=== PATIENT | female | born 1995 | race Caucasian/White ===

== ENCOUNTER 2016-12-17 10:56 | Emergency (ER) | payer BC ==
[~2016-12-17] VITALS: Ht 157.5 cm; Wt 50.0 kg
[~2016-12-17 10:56] MED LIST: IBUP-232 PO; Z.0.BCPILL PO
[2016-12-17 11:05] VITALS: BP 93/52; PULSE 95; RESP 20; TEMP 97.5; O2SAT 96
[2016-12-17] MEDS ORDERED: [UNRECOGNIZED DRUG - OTHER] (11:13)
[2016-12-17] MEDS ORDERED: NATATAB2 PO (11:13)
[2016-12-17] MEDS ORDERED: PROMETHAZINE INJ 25 MG/ML VIAL IM ONE (11:15)
[2016-12-17] MEDS ORDERED: SODIUM CHLOR 0.9% 1000 ML INJ 1,000 ML IV ONE ×2 (11:15→12:15)
[2016-12-17 11:56] VITALS: BP 100/57; PULSE 102; O2SAT 100
[2016-12-17 11:56] LABS: AUTOMATED NEUTROPHIL # 9.7 TH/MM3 (1.8-7.7); BASOPHIL % 0.2 % (0.0-2.0); EOSINOPHIL # 0.1 TH/MM3 (0-0.4); EOSINOPHIL % 0.7 % (0.0-4.0); HEMATOCRIT 38.2 % (35.0-46.0); LYMPH % 13.6 % (9.0-44.0); LYMPHOCYTE # 1.6 TH/MM3 (1.0-4.8); MEAN CELL VOLUME 88.6 FL (80.0-100.0); MEAN CORPUSCULAR HEMOGLOBIN 31.4 PG (27.0-34.0); MEAN CORPUSCULAR HGB CONC 35.4 % (32.0-36.0); MONO % 4.4 % (0.0-8.0); NEUT % 81.1 % (16.0-70.0); PLATELET COUNT 245 TH/MM3 (150-450); RED BLOOD COUNT 4.31 MIL/MM3 (4.00-5.30); RED CELL DISTRIBUTION WIDTH 11.6 % (11.6-17.2); WHITE BLOOD COUNT 11.9 TH/MM3 (4.0-11.0)
[2016-12-17 12:01] LABS: CHLORIDE 108 MEQ/L (98-107); POTASSIUM 4.1 MEQ/L (3.5-5.1); SODIUM (NA) 142 MEQ/L (136-145)
[2016-12-17 12:03] LABS: HEMO FLAGS DIFF FINAL
[2016-12-17 12:06] LABS: ANION GAP 10 MEQ/L (5-15); BICARBONATE 23.9 MEQ/L (21.0-32.0); BLOOD UREA NITROGEN 13 MG/DL (7-18)
[2016-12-17 12:09] LABS: ALT (GPT) 29 U/L (10-53); AST (GOT) 17 U/L (15-37); GLOMERULAR FILTRATION RATE 79 ML/MIN (>89)
[2016-12-17 12:11] LABS: TOTAL BILIRUBIN ADULT 0.5 MG/DL (0.2-1.0)
[2016-12-17 12:12] LABS: ALKALINE PHOSPHATASE 40 U/L (45-117)
[2016-12-17] MEDS ORDERED: ONDANSETRON HCL 4 MG/2 ML VIAL IV PUSH ONE (12:15)
--- NOTE | 2016-12-17 12:23 | PD ---
HPI Chief Complaint: Syncope/Near-Syncope Time Seen by Provider: 11:07 Travel History International Travel<30 days: No Contact w/Intl Traveler<30days: No Traveled to known affect area: No History of Present Illness HPI This 21-year-old female is brought in after a syncopal episode. She was at the gym doing a high intensity workout. She started feeling weak and lightheaded. She apparently passed out. When she woke up she was nauseated and has had some vomiting. She has no complaint of headache. She has passed out on a few occasions in the past. She is on control pills. She does not think she is . PFSH Past Medical History Autoimmune Disease: No Anxiety: No Depression: No Cardiovascular Problems: No Diminished Hearing: No Gastrointestinal Disorders: Yes Genitourinary: Yes Headaches: Yes Musculoskeletal: No Psychiatric: No Respiratory: Yes (fighting uri recently) Tetanus Vaccination: Unknown Influenza Vaccination: No ?: Not LMP: about a month ago Past Surgical History Oral Surgery: Yes Other Surgery: No Social History Alcohol Use: No Tobacco Use: No Substance Use: No Allergies-Medications (Allergen,Severity, Reaction): Coded Allergies: No Known Allergies (Verified , 11/13/15) Reported Meds & Prescriptions Reported Meds & Active Scripts Active Reported [Acne medication] Natazia (Estradiol Valerate/Estradiol [place]-Dienogest) 1 Tab Tab 1 Tab PO DAILY Review of Systems General / Constitutional: No: Fever, Chills Eyes: No: Diploplia HENT: No: Headaches Cardiovascular: Positive: Syncope, No: Chest Pain or Discomfort, Palpitations Respiratory: No: Cough Gastrointestinal: Positive: Nausea, Vomiting Genitourinary: No: Frequency Musculoskeletal: No: Myalgias Skin: No Rash, No Itching Neurologic: No: Weakness Endocrine: No: Heat Intolerance, Cold Intolerance Hematologic/Lymphatic: No: Easy Bruising Physical Exam Narrative GENERAL: Well-developed female. She is vomiting on arrival SKIN: Focused skin assessment warm/dry. HEAD: Atraumatic. Normocephalic. EYES: Pupils equal and round. No scleral icterus. No injection or drainage. ENT: No nasal bleeding or discharge. Mucous membranes pink and moist. NECK: Trachea midline. No JVD. CARDIOVASCULAR: Regular rate and rhythm. No murmur appreciated. RESPIRATORY: No accessory muscle use. Clear to auscultation. Breath sounds equal bilaterally. GASTROINTESTINAL: Abdomen soft, non-tender, nondistended. Hepatic and splenic margins not palpable. MUSCULOSKELETAL: No obvious deformities. No clubbing. No cyanosis. No edema. NEUROLOGICAL: Awake and alert. No obvious cranial nerve deficits. Motor grossly within normal limits. Normal speech. PSYCHIATRIC: Appropriate mood and affect; insight and judgment normal. Data Data Last Documented VS Vital Signs Date Time Temp Pulse Resp B/P Pulse Ox O2 Delivery O2 Flow Rate FiO2 12/17/16 11:56 102 100/57 100 12/17/16 11:05 97.5 20 Orders Promethazine Inj (Phenergan Inj) (12/17/16 11:15) Electrocardiogram (12/17/16 11:11) Complete Blood Count With Diff (12/17/16 11:11) Comprehensive Metabolic Panel (12/17/16 11:11) Urinalysis - C+S If Indicated (12/17/16 11:11) Ed Urine Pregnancytest Poc (12/17/16 11:11) Sodium Chlor 0.9% 1000 Ml Inj (Ns 1000 M (12/17/16 11:15) Ondansetron Inj (Zofran Inj) (12/17/16 12:15) Sodium Chlor 0.9% 1000 Ml Inj (Ns 1000 M (12/17/16 12:15) Labs Laboratory Tests Test 12/17/16 11:41 White Blood Count 11.9 TH/MM3 Red Blood Count 4.31 MIL/MM3 Hemoglobin 13.5 GM/DL Hematocrit 38.2 % Mean Corpuscular Volume 88.6 FL Mean Corpuscular Hemoglobin 31.4 PG Mean Corpuscular Hemoglobin 35.4 % Concent Red Cell Distribution Width 11.6 % Platelet Count 245 TH/MM3 Mean Platelet Volume 7.1 FL Neutrophils (%) (Auto) 81.1 % Lymphocytes (%) (Auto) 13.6 % Monocytes (%) (Auto) 4.4 % Eosinophils (%) (Auto) 0.7 % Basophils (%) (Auto) 0.2 % Neutrophils # (Auto) 9.7 TH/MM3 Lymphocytes # (Auto) 1.6 TH/MM3 Monocytes # (Auto) 0.5 TH/MM3 Eosinophils # (Auto) 0.1 TH/MM3 Basophils # (Auto) 0.0 TH/MM3 CBC Comment DIFF FINAL Differential Comment Sodium Level 142 MEQ/L Potassium Level 4.1 MEQ/L Chloride Level 108 MEQ/L Carbon Dioxide Level 23.9 MEQ/L Anion Gap 10 MEQ/L Blood Urea Nitrogen 13 MG/DL Creatinine 0.90 MG/DL Estimat Glomerular Filtration 79 ML/MIN Rate Random Glucose 150 MG/DL Calcium Level 8.0 MG/DL Total Bilirubin 0.5 MG/DL Aspartate Amino Transf 17 U/L (AST/SGOT) Alanine Aminotransferase 29 U/L (ALT/SGPT) Alkaline Phosphatase 40 U/L Total Protein 7.1 GM/DL Albumin 3.6 GM/DL [facility] Medical Decision Making Medical Screen Exam Complete: Yes Emergency Medical Condition: Yes Medical Record Reviewed: Yes Differential Diagnosis Differential includes dehydration, vasovagal syncope, viral illness Narrative Course Patient has been given IV fluids. She was initially given Phenergan because she thought she may be sensitive Zofran. On a previous visit she has received Reglan and had a reaction to it. EKG shows normal sinus rhythm. Diagnosis Primary Impression: Dehydration Scripts Ondansetron Odt (Zofran Odt)4 Mg Tab4 Mg SL Q6HR PRN (Nausea/Vomiting) #10 TAB Ref 0 Prov:Krystian Mendoza MD 12/17/16 Disposition: 01 DISCHARGE HOME Condition: Stable Krystian Mendoza MD Dec 17, 2016 12:23
[2016-12-17] MEDS ORDERED: ZOFR4TAB3 SL (12:36)
[2016-12-17 13:07] LABS: BLOOD, URINE NEG (NEG); GLUCOSE,URINE NEG (NEG); KETONE, URINE 80 OR GREATER mg/dL (NEG); NITRITE,URINE NEG (NEG)
[2016-12-17 13:09] LABS: METHOD OF COLLECTION VOIDED
[2016-12-17 13:10] LABS: BACTERIA, URINE FEW /hpf; COMMENT (UR) CULT NOT INDICATED; CULTURE IF INDICATED CULT NOT INDICATED; SQUAMOUS EPITHELIAL CELL URINE >8 /hpf (0-5); URINE COLOR STRAW (YELLW/STRAW); WBC, URINE 0-2 /hpf (0-5)
[2016-12-17 13:50] VITALS: BP_SYST 82; BP_SYST 92; BP_DIAS 49; BP_DIAS 59; PULSE 94; RESP 16; O2SAT 100
--- NOTE | 2016-12-18 19:22 | EKG ---
Date Performed: 12/17/2016 Time Performed: 11:43:15 PTAGE: 21 years EKG: Sinus rhythm NORMAL ECG NO PREVIOUS TRACING DOCTOR: Corey Perez Interpretating Date/Time 12/18/2016 19:22:26
== END 2016-12-17 14:09 | disposition home or self-care (01) ==
LOC: PHED 10:56
DX: E86.0 Dehydration (principal)
CPT/HCPCS: 80053; 81001; 84703; 85025; 93005; 96361; 96372; 96374; 99284; J2405; J2550; J7030